=== PATIENT | male | born 1960 | race Asian ===

== ENCOUNTER 2018-01-22 09:01 | Emergency (ER) | payer MEDICAID ==
[~2018-01-22] VITALS: Ht 160 cm; Wt 87.7 kg
[2018-01-22] MEDS ORDERED: HYDROcodone/APAP 5/325 TABLET ONE (09:59)
[2018-01-22] MEDS ORDERED: HYDROcodone/APAP 5/325 TABLET PO ONE (10:00)
[2018-01-22] MEDS ORDERED: LIDOCAINE 2%, 20ML SQ ONE (10:00)
[2018-01-22] MEDS ORDERED: LIDOCAINE-MPF 2%, 2ML ONE (10:05)
[2018-01-22 10:41] VITALS: BP 151/88
[2018-01-22] MEDS ORDERED: BACITRACIN ZINC OINT 500U/GM, 0.9 GM ONE (11:05)
== END 2018-01-22 11:43 | disposition home or self-care (01) ==
LOC: ED 11:35
DX: G89.29 Other chronic pain (principal); M25.512 Pain in left shoulder; E11.65 Type 2 diabetes mellitus with hyperglycemia; I10 Essential (primary) hypertension; E78.00 Pure hypercholesterolemia, unspecified; L03.012 Cellulitis of left finger; Z76.0 Encounter for issue of repeat prescription
CPT/HCPCS: 10060; 82962; 99283

== ENCOUNTER 2018-02-18 12:14 | Emergency (ER) | payer MEDICAID ==
[~2018-02-18] VITALS: Ht 160 cm; Wt 87.5 kg
[2018-02-18 13:09] VITALS: BP 165/115
== END 2018-02-18 13:11 | disposition home or self-care (01) ==
LOC: ED 12:49
DX: I10 Essential (primary) hypertension (principal); Z76.0 Encounter for issue of repeat prescription; E11.9 Type 2 diabetes mellitus without complications; E78.00 Pure hypercholesterolemia, unspecified
CPT/HCPCS: 82962; 99283

== ENCOUNTER 2020-03-22 07:52 | Emergency (ER) | payer BC, MEDICAID ==
[~2020-03-22] VITALS: Ht 160 cm; Wt 80.8 kg
--- NOTE | 2020-03-22 08:05 | NUR ---
EKG IN TRIAGE
--- NOTE | 2020-03-22 08:38 | NUR ---
requested records from [facility]
[2020-03-22] MEDS ORDERED: SODIUM CHLORIDE FLUSH 10ML SYR IVF ONE (09:00)
[2020-03-22] MEDS ORDERED: METOCLOPRAMIDE 5 MG/ML, 2ML IVPush ONE (09:00)
[2020-03-22] MEDS ORDERED: SODIUM CHLORIDE 0.9% 1,000ML IVBOLUS ONE (09:00)
[2020-03-22] MEDS ORDERED: MAALOX/HYOSCYAMINE/LIDOCAINE 45 ML BTL PO ONE (09:00)
[2020-03-22] MEDS ORDERED: FAMOTIDINE 20 MG/2 ML IV ONE (09:00)
[2020-03-22] MEDS ORDERED: FAMOTIDINE 20 MG/2 ML ONE (09:10)
[2020-03-22] MEDS ORDERED: METOCLOPRAMIDE 5 MG/ML, 2ML ONE (09:10)
[2020-03-22] MEDS ORDERED: MAALOX/HYOSCYAMINE/LIDOCAINE 45 ML BTL ONE (09:10)
[2020-03-22 09:12] LABS: BASOPHILS % (AUTO) 1 % (0-1); EOSINOPHILS % (AUTO) 2 % (1-7); LYMPHOCYTES % (AUTO) 13 % (22-44); MEAN CORPUSCULAR HEMOGLOBIN 27.3 pg (27.5-34.5); MEAN CORPUSCULAR HGB CONC 32.3 g/dL (33.2-36.2); MEAN PLATELET VOLUME 8.3 fL (7.4-10.4); MONOCYTES % (AUTO) 5 % (2-9); NEUTROPHILS % (AUTO) 79 % (42-75); PLATELET COUNT 471 x10^3/uL (130-400); RED BLOOD COUNT 4.36 x10^6/uL (4.38-5.82); RED CELL DISTRIBUTION WIDTH 13.6 % (9.4-14.8)
[2020-03-22 09:14] LABS: MD NO
--- NOTE | 2020-03-22 09:22 | NUR ---
PIV ESTABLISHED, PT MEDICATED PER MAR. NO OTHER NEEDS AT THIS TIME
[2020-03-22 09:23] LABS: ALANINE AMINOTRANSFERASE 27 U/L (12-78); ALBUMIN 3.4 g/dL (3.4-5.0); ANION GAP 7 mmol/L (5-15); CALCIUM 8.5 mg/dL (8.5-10.1); CHLORIDE 109 mmol/L (98-107); CREATININE 0.89 mg/dL (0.7-1.3)
[2020-03-22 09:25] LABS: ALKALINE PHOSPHATASE 132 U/L (45-117); BILIRUBIN,TOTAL 0.3 mg/dL (0.2-1.0); TOTAL PROTEIN 7.7 g/dL (6.4-8.2)
[2020-03-22 10:17] VITALS: BP 170/98
== END 2020-03-22 10:19 | disposition home or self-care (01) ==
LOC: ED 09:11
DX: K29.00 Acute gastritis without bleeding (principal); R10.13 Epigastric pain; R11.0 Nausea; I10 Essential (primary) hypertension; E11.9 Type 2 diabetes mellitus without complications; Z72.9 Problem related to lifestyle, unspecified
CPT/HCPCS: 36415; 74021; 80053; 83690; 85025; 93005; 96361; 96374; 96375; 99285; J2765; J7030

== ENCOUNTER 2020-06-19 03:54 | Emergency (ER) | payer BC ==
[~2020-06-19] VITALS: Ht 160 cm; Wt 84.2 kg
[2020-06-19] MEDS ORDERED: ACETAMINOPHEN 325 MG TABLET PO ONE (04:30)
[2020-06-19] MEDS ORDERED: KETOROLAC 30 MG/1 ML IM ONE (04:30)
[2020-06-19] MEDS ORDERED: ACETAMINOPHEN 325 MG TABLET ONE (05:08)
[2020-06-19] MEDS ORDERED: KETOROLAC 30 MG/1 ML ONE (05:08)
[2020-06-19 05:46] LABS: BASOPHILS % (AUTO) 1 % (0-1); EOSINOPHILS % (AUTO) 3 % (1-7); LYMPHOCYTES % (AUTO) 22 % (22-44); MEAN CORPUSCULAR HEMOGLOBIN 24.7 pg (27.5-34.5); MEAN CORPUSCULAR HGB CONC 32.9 g/dL (33.2-36.2); MEAN PLATELET VOLUME 8.5 fL (7.4-10.4); MONOCYTES % (AUTO) 7 % (2-9); NEUTROPHILS % (AUTO) 67 % (42-75); PLATELET COUNT 279 x10^3/uL (130-400); RED BLOOD COUNT 5.57 x10^6/uL (4.38-5.82); RED CELL DISTRIBUTION WIDTH 16.9 % (9.4-14.8)
[2020-06-19 05:53] LABS: ALANINE AMINOTRANSFERASE 25 U/L (12-78); ANION GAP 6 mmol/L (5-15); CALCIUM 8.5 mg/dL (8.5-10.1); CHLORIDE 108 mmol/L (98-107); CREATININE 1.03 mg/dL (0.7-1.3)
[2020-06-19 05:55] LABS: ALKALINE PHOSPHATASE 198 U/L (45-117); BILIRUBIN,TOTAL 0.4 mg/dL (0.2-1.0); TOTAL PROTEIN 8.1 g/dL (6.4-8.2)
[2020-06-19 06:12] LABS: MD NO
[2020-06-19 06:25] VITALS: BP 160/102
== END 2020-06-19 06:39 | disposition home or self-care (01) ==
LOC: ED 04:43
DX: S43.422A Sprain of left rotator cuff capsule, initial encounter (principal); E11.65 Type 2 diabetes mellitus with hyperglycemia; I10 Essential (primary) hypertension; I48.91 Unspecified atrial fibrillation; E78.00 Pure hypercholesterolemia, unspecified; Z91.14 Patient's other noncompliance with medication regimen; Z88.8 Allergy status to other drugs, medicaments and biological substances; X58.XXXA Exposure to other specified factors, initial encounter; Y93.89 Activity, other specified; Y92.098 Other place in other non-institutional residence as the place of occurrence of the external cause; Y99.8 Other external cause status
CPT/HCPCS: 36415; 73030; 80053; 85025; 93005; 96372; 99285; J1885